=== PATIENT | female | born 1975 | race Caucasian/White ===

== ENCOUNTER 2023-08-19 06:48 | Emergency (ER) | payer OTHER ==
[~2023-08-19] VITALS: Ht 172.7 cm; Wt 81.2 kg
[2023-08-19 07:00] VITALS: PULSE 74; RESP 16; TEMP 98.6; O2SAT 96
[2023-08-19] MEDS ORDERED: LISINOPRIL5 MG PO (07:09)
[2023-08-19] MEDS ORDERED: AUGMENTIN 500-1 EACH PO (07:52)
[2023-08-19] MEDS: CEFTRIAXONE 1 GM VIAL IM ONE (07:56)
[2023-08-19] MEDS: TETANUS/DIPHTHERIA TOX ADULT 0.5 ML SYR IM ONE (08:15)
== END 2023-08-19 08:16 | disposition home or self-care (01) ==
LOC: FSED 06:54
DX: S91.031A Puncture wound without foreign body, right ankle, initial encounter (principal); L03.115 Cellulitis of right lower limb; W55.01XA Bitten by cat, initial encounter; Y92.89 Other specified places as the place of occurrence of the external cause
CPT/HCPCS: 90471; 90714; 96372; 99283; J0696